=== PATIENT | male | born 1970 | race Caucasian/White ===

== ENCOUNTER 2016-12-30 19:28 | Inpatient (IN) ==
[2016-12-30] MEDS ORDERED: ASPIRIN PO STA (19:38)
[2016-12-30 20:07] LABS: MANUAL DIFF NEEDED? NO
[2016-12-30 20:11] LABS: BASO% 0.4 % (0.0-0.8); EOS# 0.09 X1000 (0.0-0.7); EOS% 1.1 % (0.0-10.0); HEMATOCRIT 41.1 % (42.0-52.0); HEMOGLOBIN 14.4 g/dL (14.0-18.0); IMM GRAN# 0.02 X1000 (0.0-0.04); IMM GRAN% 0.2 % (0.0-0.5); LYMPH# 2.06 X1000 (1.2-3.4); LYMPH% 24.9 % (20.5-51.1); MCH 31.6 PG (27-31); MCV 90.1 FL (81-99); MONO# 0.59 X1000 (0.11-0.59); MONO% 7.1 % (1.7-9.3); MPV 10.9 FL (7.4-10.4); NEUT% 66.3 % (42.2-75.2); PLT 190 X1000 (130-400); RBC 4.56 XMIL (4.7-6.1)
--- NOTE | 2016-12-30 20:16 | Diag Imaging Result Doc PS360 ---
CHEST-2 VIEWS - 12/30/2016 INDICATION: SOB TECHNIQUE: COMPARISON: 05/31/2014 FINDINGS: Stable cardiomegaly. There are some ill-defined central interstitial infiltrates. No pneumothorax or significant pleural effusion. IMPRESSION: Cardiomegaly. Subtle interstitial infiltrates may represent pulmonary edema. Electronically signed by Toi Valenzuela 12/30/2016 8:14 PM
[2016-12-30 20:19] LABS: INR 1.24; PROTIME 13.2 Seconds (9.2-11.7); PTT 24.8 Seconds (22.0-36.0)
[2016-12-30 20:46] LABS: AGAP 11; ALBUMIN 4.3 g/dL (3.5-5.0); ALKALINE PHOSPHATASE 90 U/L (32-122); BUN 15 mg/dL (8-22); CHLORIDE 100 mmol/L (98-107); CK PROFILE 168 U/L (24-204); COSMO 277; GOT 17 U/L (10-34); GPT 20 U/L (10-44); POTASSIUM 4.3 mmol/L (3.5-5.1); SODIUM 138 mmol/L (136-145); TCO2 27 mmol/L (25-35)
[2016-12-30] MEDS ORDERED: RANEXA PO ONE (23:52)
[2016-12-31] MEDS ORDERED: LASIX IV ONE ×2 (00:39→00:42)
[2016-12-31] MEDS ORDERED: ZOFRAN IV PRN (01:08)
[2016-12-31] MEDS ORDERED: TYLENOL PO PRN (01:08)
[2016-12-31] MEDS ORDERED: LOVENOX SUBQ SCH (01:08)
--- NOTE | 2016-12-31 02:31 | HISTORY AND PHYSICAL ---
Patient of Dr. Vern Hayes. REASON FOR ADMISSION: Dyspnea on exertion for the last 10 days. HISTORY OF PRESENT ILLNESS: Mr. Toney Najera is a 44-year-old male with past medical history of hypertension, hyperlipidemia. Primary armored machine operator is Dr. Garcia. He also has a history of coronary artery disease with triple-vessel disease. Cardiac cath was done in 2014 at that time. He comes in today complaining of 1-week history of worsening intermittent dyspnea on exertion to the point that even walking 10 feet in the last couple of days induces severe dyspnea. He denies any antecedent leg swelling, PND, orthopnea. No chest pain with this, however. No palpitations or presyncopal type symptoms. He denies any cough, fever or chills. He denies any extremity redness or pain. REVIEW OF SYSTEMS: Only notable for epigastric soreness which lasts 10 minutes and has been ongoing for the last 1 week with no specific aggravating or relieving factors. No history of GI complaints. He also complains of an occasional dry cough. He denies any abdominal distention. No platypnea. Otherwise, 12 system review is negative. Positive findings noted in the HPI. No fever or chills. ALLERGIES: Codeine. MEDICATIONS: 1. Lipitor 80 mg daily. 2. Ranexa 500 mg b.i.d. 3. Aspirin 162 mg daily. 4. Lisinopril 20 mg q.a.m. SURGICAL HISTORY: Notable for 2 right shoulder surgeries and clot evacuation and bleed from an aneurysm many years ago. SOCIAL HISTORY: Patient lives with his mother. He does not smoke, drink or use or use illicit drugs. FAMILY HISTORY: Only notable for heart disease and diabetes. He said there are cancers in the family but does not know what type. LAB WORK: EKG showed normal sinus rhythm with right bundle branch block and left anterior hemiblock and left atrial enlargement. Other blood work: White count 8000, hemoglobin 14, hematocrit 41, platelets 190 with normal differential. Chemistry: Magnesium 2.0, total bilirubin is 1.3. Troponin times 2 negative. ProBNP 1400. D-dimer is negative. PT and PTT is normal. Chest film shows cardiomegaly with subtle interstitial infiltrates which may represent pulmonary edema. PHYSICAL EXAMINATION: VITAL SIGNS: Blood pressure is 133/79, heart rate 57, respirations is 16, temperature 97.9, 99% on room air. GENERAL: He is a pleasant middle-aged, obese, man who is not in acute respiratory distress. He is alert and oriented to person, place and time with normal mood and affect. HEENT: Head is normocephalic, atraumatic. Eyes: ELAN, EOMI. He is anicteric but mildly pale. ENT and oropharyngeal exam is grossly normal. No central cyanosis noted. NECK: Supple. No JVD or carotid bruit. No thyromegaly. CHEST: Clear to auscultation. Good air entry in both lung dolan. CARDIOVASCULAR: First heart sounds are heard and persistent split 2nd heart sound noted. No murmurs. Rhythm is regular. No gallops. ABDOMEN: Protuberant, soft. No tenderness elicited. No mass or organomegaly. Bowel sounds are normal. RECTAL: Deferred at this time. EXTREMITIES: No edema, clubbing or cyanosis. NEUROLOGICAL: Exam is grossly intact. No focal deficits. SKIN: Intact. No breakdown, lesions or erythema. MUSCULOSKELETAL: Grossly normal. ASSESSMENT: 1. Dyspnea, probably secondary to transient third-degree AV block with early onset CHF. 2. Mild CHF. 3. Coronary artery disease. 4. Hypertension. 5. Hyperlipidemia. PLAN: At this point in time, I will give patient modest doses of Lasix to see how he responds and repeat chest film. If he clinically improves with simultaneous objective improvement in x-ray, then probably this patient's symptoms may be related to early onset CHF which could be related to his underlying ischemic disease. The patient did have some degree of transient third-degree AV block and it was suggested by Dr. Viramontes, the armored machine operator conference center coordinator, that he be transferred to [place] but unfortunately they do not have any beds to admit the patient. A TSH level was done to rule out underlying hypothyroidism. The patient will put on scheduled nebulizer treatments to address mild dyspnea from CHF and also may help with his rate. Echocardiogram has been ordered to assess his EF. His last one was 55% per his cardiac cath. Serial cardiac troponins will be done to monitor for any possibility of acute coronary event. Also Ranexa will be withheld as one of the side effects is bradycardia. Dr. Viramontes will be notified to see patient. Lovenox will be our choice in this patient for DVT prophylaxis. It is possible with these interventions that the patient may not need to be transferred. cc: MD Vern Oliveros MD [facility]ITAL[facility]and[facility]
[2016-12-31] MEDS ORDERED: FLUZONE QUAD 2017-2018 SYRINGE IM ONE (02:47)
[2016-12-31] MEDS: DUONEB (A & A) INH SCH ×2 (03:10→10:01)
--- NOTE | 2016-12-31 05:37 | EKG Report ---
Test Performed on : 12/30/2016 7:36:48 PM Test Reason : sob Blood Pressure : / mmHG Vent. Rate : 059 BPM Atrial Rate : 059 BPM P-R Int : 298 ms QRS Dur : 150 ms QT Int : 498 ms P-R-T Axes : 041 -68 020 degrees QTc Int : 493 ms Sinus bradycardia. with 1st degree AV block. with occasional premature ventricular complexes. Possible Left atrial enlargement Left axis deviation Right bundle branch block Inferior infarct , age undetermined Abnormal ECG When compared with ECG of 07-JUL-2014 09:22, Significant changes have occurred Unconfirmed Result
--- NOTE | 2016-12-31 05:38 | EKG Report ---
Test Performed on : 12/30/2016 10:00:42 PM Test Reason : SOB Blood Pressure : / mmHG Vent. Rate : 062 BPM Atrial Rate : 062 BPM P-R Int : 308 ms QRS Dur : 164 ms QT Int : 514 ms P-R-T Axes : 038 -74 019 degrees QTc Int : 521 ms Sinus rhythm. with 1st degree AV block. Possible Left atrial enlargement Left axis deviation Right bundle branch block Inferior infarct (cited on or before 30-DEC-2016) Abnormal ECG When compared with ECG of 30-DEC-2016 19:36, (Unconfirmed) premature ventricular complexes. are no longer present Unconfirmed Result
[2016-12-31 06:37] LABS: AGAP 13; BUN 16 mg/dL (8-22); CALCIUM 8.9 mg/dL (8.8-10.2); CHLORIDE 98 mmol/L (98-107); COSMO 280; POTASSIUM 3.6 mmol/L (3.5-5.1); SODIUM 140 mmol/L (136-145); TCO2 29 mmol/L (25-35)
[2016-12-31] MEDS ORDERED: ASPIRIN EC PO SCH (09:00)
[2016-12-31] MEDS ORDERED: PRINIVIL PO SCH (09:00)
[2016-12-31] MEDS ORDERED: LIPITOR PO SCH (09:00)
--- NOTE | 2016-12-31 09:51 | Diag Imaging Result Doc PS360 ---
EXAM: CHEST-2 VIEWS HISTORY: ?chf TECHNIQUE: PA and lateral chest COMMENT: There is mild cardiomegaly. The inspiration is suboptimal. The appearance the chest has not changed appreciably since 12/30/2016. IMPRESSION: Borderline cardiomegaly. Electronically signed by Pavel Fernández 12/31/2016 9:48 AM
--- NOTE | 2016-12-31 10:28 | EKG Report ---
Test Performed on : 12/31/2016 09:58:26 AM Test Reason : Confirm rhythm Blood Pressure : / mmHG Vent. Rate : 047 BPM Atrial Rate : 023 BPM P-R Int : 000 ms QRS Dur : 160 ms QT Int : 536 ms P-R-T Axes : 000 -79 024 degrees QTc Int : 474 ms Wide QRS rhythm. Left axis deviation Right bundle branch block Inferior infarct , age undetermined Abnormal ECG When compared with ECG of 30-DEC-2016 22:00, Wide QRS rhythm. has replaced Sinus rhythm. Confirmed by Nataly VARNER, Rudy Pacheco ([id number]) on 01/02/2017 7:49:23 AM
[2016-12-31 10:44] VITALS: BP 115/78
--- NOTE | 2016-12-31 18:32 | ECHO REPORT ---
ORDER DATE: 12/31/2016 INTERPRETING PHYSICIAN: Dr. Garcia REQUESTING PHYSICIAN: CLINICAL INDICATIONS: A 46-year-old male with coronary heart disease, CHF. M-MODE MEASUREMENTS: Right ventricle end diastole: 3.1 cm. Left ventricle end diastole: 7.1 cm. Left ventricle end systole: 6.0 cm. Posterior wall: 1.2 cm. Interventricular septum: 1.1 cm. Left atrium: 4.8 cm. Aortic root: 3.1 cm. SUMMARY OF 2-DIMENSIONAL IMAGING: Definity was used to enhance the visualization of the endocardium. The left ventricular chamber is markedly dilated. Global systolic function is estimated to be somewhere in the range of 40-45%. There is severe impairment of the inferior wall and also moderate impairment of the lateral wall. The septum and apex showed reasonable contractility. The left atrium is moderately dilated. The right ventricle is only borderline enlarged. The pulmonic valve looks normal. Color flow mapping unremarkable. The tricuspid valve looks grossly normal. Color flow mapping unremarkable. The inferior vena cava is not dilated. Pulmonary pressure is probably normal. The mitral valve opens normally. Color flow mapping indicates a mild degree of regurgitation. Pulse wave Doppler of mitral inflow shows a pseudo normal pattern with a tall E wave and a short A wave. Tissue Doppler of septal and lateral mitral annulus averages 4 cm per second. There is impaired left ventricular relaxation with elevation of left atrial pressure. The aortic valve opens normally. Color flow mapping unremarkable. There is no pericardial effusion, masses or thrombus. IMPRESSION: In summary, this study shows: 1. Enlargement of left ventricle with moderately impaired function. Ejection fraction 40-45% with significant wall motion abnormality in the inferior and lateral wall. 2. Impaired left ventricular relaxation with elevation of left atrial pressure consistent with diastolic dysfunction. 3. Pulmonary pressure probably normal. 4. Very mild degree of mitral regurgitation. Clinical correlation recommended. cc: MD Ivan Norwood MD
--- NOTE | 2017-01-01 09:57 | DISCHARGE SUMMARY ---
ADMISSION DATE: 12/31/2016 DISCHARGE DATE: 12/31/2016 The patient was transferred to [facility] on 01/08. PERTINENT PROCEDURES: 1. Chest x-ray showed cardiomegaly, interstitial infiltrates may represent pulmonary edema. 2. EKG showed sinus bradycardia with first-degree AV block with occasional premature ventricular contractions. Possible left atrial enlargement. 3. EKG showed sinus rhythm with first-degree AV block, with possible left atrial enlargement, left axis deviation, right bundle branch block. 4. Echocardiogram showed an ejection fraction of 40-45% with severe impairment of the inferior wall, moderate of lateral wall. Impaired LV relaxation with elevation of left atrial pressure, consistent with diastolic dysfunction. Very mild degree of mitral regurgitation. 5. Followup chest x-ray showed borderline cardiomegaly. 6. Third EKG showed a wide QRS rhythm at 47 beats per minute with a left axis deviation and right bundle branch block. DISCHARGE DIAGNOSES: 1. Third degree arteriovenous block with acute congestive heart failure. The patient was transferred to [facility] by Cardiology for further treatment. 2. Coronary artery disease. 3. Hypertension. 4. Hyperlipidemia. HOSPITAL COURSE: Mr. Najera is a 44-year-old male with a past medical history of hypertension, hyperlipidemia. Primary security incident response specialist was Dr. Garcia. Has a history of coronary artery disease with triple-vessel disease. Cardiac cath was done in 2014. He came to the ED complaining of a 1-week history of worsening intermittent dyspnea on exertion to the point of even walking 10 feet in last couple a day and severe dyspnea. He denied any leg swelling, paroxysmal nocturnal dyspnea, orthopnea, or chest pain; however, no palpitations or presyncopal type symptoms. No cough, fever, or chills. Denied any extremity redness or pain. He was notable for epigastric soreness which lasted 10 minutes and had been ongoing for the last week with no specific aggravating or alleviating factors. No history of GI complaints. Does complain of occasional dry cough. Denied any abdominal distention. His initial EKG showed normal sinus rhythm with right bundle branch block and left anterior hemiblock and left atrial enlargement. Chest x-ray showed cardiomegaly with subtle interstitial infiltrates, which may represent pulmonary edema. A high white count 8000 hemoglobin of 14, hematocrit 41, and platelets of 190,000. Chemistry: His magnesium was 2.0. Troponin's were negative x2. His proBNP was 1400. D-dimer was negative. PT and PTT were normal. Potassium was 4.3. In the ED he was given 325 mg of aspirin, as well as a dose a Ranexa. He was admitted for dyspnea secondary to transient third-degree AV block with early onset of congestive heart failure. He was given a dose of Lasix by the admitting physician, with repeat EKG and cardiology consult, given the patient has some degree of transient third- degree AV block. I did speak with Cardiology Dr. Viramontes, the security incident response specialist accreditation specialist. He wanted the patient transferred to [place], although unfortunately does not have any beds to admit the patient. They did a TSH level as well to rule out any underlying hypothyroidism. We ordered an echo and withheld Ranexa, as one of the side effects of bradycardia. His echocardiogram did show enlargement of the left ventricle with moderately impaired function with ejection fraction of 40- 45% as well as impaired LV relaxation with elevation of left atrial pressure consistent diastolic dysfunction and very mild degree of mitral regurgitation. He was ultimately transferred to [facility] for 3rd degree AV block, for further management and treatment. Time discharging this patient: 35 minutes Dictated by AJ Loaiza for Tato Whitaker MD cc: MD Vern Candelaria MD MTDD
--- NOTE | 2017-01-02 20:14 | PROVIDER DOCUMENTATION ---
This chart was entered by Merissa Moses Scribe, acting as scribe for David Jones MD. HPI-Cardiac General - General Chief Complaint: Shortness of Breath Stated Complaint: SOB Time Seen by Provider: 12/30/16 22:39 Source: patient Allergies/Adverse Reactions: Patient Allergies Allergy/AdvReac Type Severity Reaction Status Date / Time codeine Allergy SWELLING Verified 12/30/16 23:37 Home Medications: Home Medication List Medication Instructions Recorded Confirmed Last Taken Type Aspirin [Aspirin EC] 162 mg PO QAM 12/30/16 12/30/16 12/30/16 09:00 History Atorvastatin Calcium [Lipitor] 80 mg PO QAM 12/30/16 12/31/16 12/30/16 09:00 History Lisinopril [Lisinopril] 1 each PO QAM 12/30/16 12/30/16 12/29/16 09:00 History Ranolazine [Ranexa] 1 each PO BID 12/30/16 12/30/16 12/30/16 12:30 History - History of Present Illness-Cardiac Nature of Presenting Problem: Pt is a 46 y/o M presents to the ED with bradycardia and SOB. Pt states bradycardia has been present for 2 years and the SOB has been present for a week and a half. Pt states diver's tender is Dr. Bennett and he has talked about a pacemaker. Pt states Dr. Bennett has sent a referral to an restaurant recruiter. Pt states has not seen the restaurant recruiter. Pt states has had a stress test and a cardiac cath. Pt denies chest pain Location: reports: central Quality of Pain: reports: none Severity in ED: mild Onset/Duration: other (a week and a half for SOB and 2 year of bradycardia) Timing: still present Context/Activities at Onset: reports: light activity Modifying Factors: improves with: nothing Palpitation Quality: slow heart rate History of arrythmia: reports: none Recent use of:: reports: no stimulants Nitro Today/Relief: reports: no nitro taken today Aspirin Treatment Today: reports: no aspirin today Prior Chest Pain/Cardiac Workup: reports: cardiac cath, stress test Associated Symptoms: reports: shortness of breath Similar Symptoms Previously?: Yes Recently Seen Here or By Another Healthcare Provider: Yes Review of Systems - Adult - REVIEW OF SYSTEMS - ADULT Constitutional: reports: no symptoms reported Eyes: reports: no symptoms reported Ears, Nose, Mouth & Throat: reports: no symptoms reported Cardiovascular: reports: irregular heart rate (abhi). denies: chest pain, heart murmur Respiratory: reports: shortness of breath. denies: cough, wheezing Gastrointestinal: reports: no symptoms reported Genitourinary: reports: no symptoms reported Musculoskeletal: reports: no symptoms reported Integumentary: reports: no symptoms reported Neurological: reports: no symptoms reported Psychiatric: reports: no symptoms reported Endocrine: reports: no symptoms reported Hematologic/Lymphatic: reports: no symptoms reported Allergic/Immunologic: reports: no symptoms reported All Other Systems: Reviewed and Negative Past History - Adult - PAST MEDICAL HISTORY-ADULT Review of Records: reports: Nursing Assessment Review, Medications Reviewed, Social history reviewed & non-contributory. 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) Endocrine/Immune: reports: denies history Other Conditions: reports: denies history - PRIOR SURGERIES/PROCEDURES Surgical/Procedure History: reports: other (aneurysm brain repair) - IMMUNIZATION STATUS Childhood Immunizations: See Nurse Assessment Flu Vaccine: See Nurse Assessment - FAMILY HISTORY Family History: reviewed, not pertinent - SOCIAL HISTORY Smoking: denies Substance Use: alcohol Alcohol Use Frequency: occasionally Number of drinks per typical drinking period:: 2 drinks Living Situation: family Physical Exam-General - PHYSICAL EXAM-ADULT Initial Vital Signs Reviewed: Yes - CONSTITUTIONAL General Appearance: alert, no apparent distress. negative: lethargic, slow to respond - EYES Eyes: PERRL/EOMI, pink conjunctivae. negative: pale conjunctivae, sunken eyes - HEAD, EARS, NOSE, MOUTH & THROAT HENMT: normocephalic/atraumatic, moist mucous membranes, normal ENT inspection. negative: angioedema, hearing deficit - NECK Neck: normal inspection. negative: lymphadenopathy, tender lateral - RESPIRATORY Respiratory: chest non-tender, lungs clear, normal breath sounds. negative: crackles, rhonchi - CARDIOVASCULAR Cardiovascular: normal peripheral pulses, bradycardia. negative: regular rate, rhythm, systolic murmur - GASTROINTESTINAL (ABDOMEN) Abdominal Exam: normal bowel sounds, non tender, soft. negative: guarding, rebound - LYMPHATIC Lymphatic: no adenopathy. negative: enlargement, streaking - MUSCULOSKELETAL Back Exam: normal inspection, no CVA tenderness, no vertebral tenderness. negative: ecchymosis, swelling Extremity: normal range of motion, non-tender. negative: deformity, erythema, swelling - SKIN Integumentary: normal color, normal turgor, warm/dry. negative: diaphoresis, ecchymosis, erythema, laceration(s), rash - NEUROLOGIC Neurologic: grossly normal. negative: aphasia, facial droop - PSYCHIATRIC Psych/Mental Status: normal mood/affect, oriented x 3. negative: paranoid, tearful Progress - PLAN OF CARE/RESULTS Progress/Plan/Lab Results: Orders Category Date Time Status Admit - [facility] Routine AdmDCTranf 12/31/16 01:08 Ordered Activity - Up with Assistance ORDERED Care 12/31/16 01:08 Active Cardiac Monitoring DIRECTED Care 12/30/16 19:38 Completed Nursing- MD Consult Request [id number] Care 12/31/16 01:08 Active Physician/Provider Consults Routine Cons 12/31/16 01:08 Ordered NPO Diet 12/31/16 00:31 Completed CHEST-2 VIEWS [RAD] Stat Exams 12/30/16 19:38 Completed BASIC METABOLIC PANEL [CHEM] Routine Lab 12/31/16 04:00 Completed CBC WITH ELECTRONIC DIFF [HEME] Stat Lab 12/30/16 19:49 Completed CK PROFILE [SP CHEM] Stat Lab 12/30/16 19:49 Completed CK TOTAL [CHEM] Stat Lab 12/30/16 22:17 Completed COMPREHENSIVE METABOLIC PANEL [CHEM] Stat Lab 12/30/16 19:49 Completed D-DIMER [CHEM] Stat Lab 12/30/16 19:49 Completed MAGNESIUM [CHEM] Stat Lab 12/30/16 19:49 Completed PRO B-NATRIURETIC PEPTIDE Stat Lab 12/30/16 19:49 Completed PROTIME WITH INR [COAG] Stat Lab 12/30/16 19:49 Completed PTT [COAG] Stat Lab 12/30/16 19:49 Completed TROPONIN T Stat Lab 12/30/16 19:49 Completed TROPONIN T Stat Lab 12/30/16 22:17 Completed TSH Stat Lab 12/31/16 01:08 Completed ATORVAstatin [Lipitor] Med 12/31/16 09:00 Discontinued 80 mg PO QAM Acetaminophen [Tylenol] Med 12/31/16 01:08 Discontinued 650 mg PO Q6H PRN PRN Albuterol 2.5MG/Ipratrop 0.5MG [Duoneb (A & A)] Med 12/31/16 04:00 Discontinued 3 ml INH RTQ6H Aspirin Med 12/30/16 19:38 Discontinued 325 mg PO STAT STA Aspirin EC Med 12/31/16 09:00 Discontinued 162 mg PO QAM Enoxaparin [Lovenox] Med 12/31/16 01:08 Discontinued 40 mg SUBQ Q24H LISINOpril [Prinivil] Med 12/31/16 09:00 Discontinued 20 mg PO QAM Ondansetron [Zofran] Med 12/31/16 01:08 Discontinued 4 mg IV Q4H PRN PRN Ranolazine E.r. [Ranexa] Med 12/30/16 23:52 Discontinued 500 mg PO NOW ONE Aerosol Treatments Routine Oth 12/31/16 01:08 Completed Aerosol Treatments Stat Oth 12/31/16 01:08 Completed EKG [EKG] Stat Ther 12/30/16 19:29 Draft EKG [EKG] Stat Ther 12/30/16 22:01 Draft Transfer/Admit Order [TRANSFER] Routine Transfer 12/31/16 00:28 Completed Result Diagrams: 12/30/16 19:49 12/31/16 04:00 - EKG 1 Time of EKG reading by physician:: 22:00 EKG Read and Signed by:: David Jones EKG Interpretation (*Must complete 3 of following elements*): Abnormal (RBBB; inferior infarct, age undetermined) Rate: 62 Rhythm: sinus rhythm with 1st degree AV block Comments: possible left atrial enlargement; left axis deviation - XRAY 1 XRAY Study: Chest Impression: Abnormal XRAY Interpretation: Cardiomegaly. Subtle interstitial infiltrates may represent pulmonary edema - CONSULTS/PCP/HOSPITALIST Notification #1 *Consult/PCP/Hospitalist*: Dr. Viramontes Time Discussed: 23:19 Reason/Comments: Dr. Jones consulted with Dr. Viramontes about Pt Consult Disposition: other (Transfer to [place]) #2 Consult: Dr. Doll's CABLE MACHINE OPERATOR Time Discussed: 23:40 Reason/Comments: Dr. Jones consulted with Dr. Doll' CABLE MACHINE OPERATOR about Pt Consult Disposition: other (Dr. Doll's CABLE MACHINE OPERATOR states there are no bed at [place]) #3 Consult: Dr. Sinclair Time Discussed: 00:09 Reason/Comments: Dr. Jones consulted with Dr. Sinclair about Pt Consult Disposition: Admit Departure - Departure Date of Disposition Decision: 12/31/16 Time of Disposition Decision: 00:09 DIAGNOSIS: Third degree heart block by electrocardiogram Disposition: ADMITTED INPATIENT Certified Medical Emergency: Emergent Condition: Stable - Critical Care Note This patient required my direct & personal management of CC.: No Attestation - Physician/ ELOY Attestation Patient care was provided by Advanced Practice Provider:: No The physician spent face to face time with patient:: Yes Advanced Practice Provider documentation review:: Supervising physician onsite and consulted in the evaluation and care of this patient. The physician did have a face to face encounter with the patient. This chart was documented by the indicated scribe, (Merissa Moses Scribe) and accurately reflects the services I performed and decisions made by , David Jones MD, as attested by the provider's signature.
--- NOTE | 2017-01-02 20:15 | ED EKG INTERP ---
This chart was entered by Merissa Moses Scribe, acting as scribe for David Jones MD. EKG Interpretation - EKG Time of EKG reading by physician:: 19:36 EKG Read and Signed by:: David Jones EKG Interpretation (*Must complete 3 of following elements*): Abnormal (rhythm - sinus bradycardia w 1st degree AV block w occasional premature ventricular complexes; inferior infarct, age undetermined) Rate: 59 Comments: possible left atrial enlargement; left axis deviation; RBBB Attestation - Physician/ ELOY Attestation Patient care was provided by Advanced Practice Provider:: No The physician spent face to face time with patient:: Yes Advanced Practice Provider documentation review:: Supervising physician onsite and consulted in the evaluation and care of this patient. The physician did have a face to face encounter with the patient. This chart was documented by the indicated scribe, (Merissa Moses Scribe) and accurately reflects the services I performed and decisions made by me, David Jones MD, as attested by the provider's signature.
== END 2016-12-31 14:52 | disposition short-term general hospital (02) ==
LOC: ED 19:28 → SUATTDRO 12-31 00:36 → 3S 12-31 00:36
PROVIDERS: ATTEND Internal Medicine

== ENCOUNTER 2018-12-17 15:27 | Inpatient (IN) ==
[2018-12-17 16:01] LABS: BASO# 0.02 X1000 (0.0-0.2); BASO% 0.3 % (0.0-0.8); EOS# 0.09 X1000 (0.0-0.7); EOS% 1.3 % (0.0-10.0); HEMATOCRIT 37.4 % (42.0-52.0); HEMOGLOBIN 13.2 g/dL (14.0-18.0); IMM GRAN# 0.03 X1000 (0.0-0.04); IMM GRAN% 0.4 % (0.0-0.5); LYMPH# 1.85 X1000 (1.2-3.4); LYMPH% 26.5 % (20.5-51.1); MCHC 35.3 g/dL (33-37); MCV 90.6 FL (81-99); MONO# 0.41 X1000 (0.11-0.59); MONO% 5.9 % (1.7-9.3); MPV 9.6 FL (7.4-10.4); NEUT# 4.58 X1000 (1.4-6.5); NEUT% 65.6 % (42.2-75.2); PLT 174 X1000 (130-400); RBC 4.13 XMIL (4.7-6.1); RDW 12.7 % (11.5-14.5); WBC 6.98 X1000 (4.8-10.8)
--- NOTE | 2018-12-17 16:51 | Diag Imaging Result Doc PS360 ---
CT HEAD W/O CONTRAST - 12/17/2018 INDICATION: facial numbness COMPARISON: None FINDINGS: There has been prior suboccipital craniotomy. There is a large area of old encephalomalacia involving the right cerebellar hemisphere, with a small involvement of the left cerebellar hemisphere. This indicates prior injury or resection. No intracranial mass or hemorrhage. The skull is intact. The sinuses are clear. IMPRESSION: No acute process. This exam was performed using automated exposure control, adjustment of mA or kV according to patient size, and/or use of iterative reconstruction technique Electronically signed by Toi Valenzuela 12/17/2018 4:49 PM
--- NOTE | 2018-12-17 18:22 | ED EKG INTERP ---
This chart was entered by Maude Vazquez Scribe, acting as scribe for Seng Heredia MD. EKG Interpretation - EKG Time of EKG reading by physician:: 16:25 EKG Read and Signed by:: Seng Heredia EKG Interpretation (*Must complete 3 of following elements*): Abnormal (paced rhythm, lvcd, rvh) Rate: 70 Rhythm: atrial paced rhythm QRS: NSIVCD, other (rvh) Attestation - Physician/ ELOY Attestation The physician spent face to face time with patient:: No Advanced Practice Provider documentation review:: Supervising physician onsite and consulted in the evaluation and care of this patient. The physician did not have a face to face encounter with the patient. This chart was documented by the indicated scribe, (Maude Vazquez, Ryan) and accurately reflects the services I performed and decisions made by Giovanna brooks Kent A., MD, as attested by the provider's signature.
--- NOTE | 2018-12-17 18:36 | EKG Report ---
Test Performed on : 12/17/2018 3:49:58 PM Test Reason : dizzy Blood Pressure : / mmHG Vent. Rate : 070 BPM Atrial Rate : 069 BPM P-R Int : 000 ms QRS Dur : 164 ms QT Int : 480 ms P-R-T Axes : 000 165 -17 degrees QTc Int : 518 ms Suspect arm lead reversal, interpretation assumes no reversal Atrial-paced rhythm Nonspecific intraventricular block Possible Right ventricular hypertrophy Lateral infarct (cited on or before 31-DEC-2016) Abnormal ECG When compared with ECG of 20-JUL-2017 13:03, Electronic atrial pacemaker has replaced Sinus rhythm. Unconfirmed Result
[2018-12-17 19:08] LABS: INR 1.17
[2018-12-17 19:09] LABS: PTT 25.8 Seconds (22.3-41.8)
[2018-12-17 19:21] LABS: AGAP 13; ALB/GLOB RATIO 1.6; ALBUMIN 4.5 g/dL (3.5-5.0); ALKALINE PHOSPHATASE 114 U/L (32-122); BUN 11 mg/dL (8-22); CALCIUM 9.2 mg/dL (8.8-10.2); CHLORIDE 103 mmol/L (98-107); CK PROFILE 136 U/L (24-204); COSMO 279; CREATININE 0.9 mg/dL (0.7-1.2); ESTIMATED GFR > 60; GLUCOSE 100 mg/dL (70-104); GOT 14 U/L (10-34); GPT 16 U/L (10-44); SODIUM 140 mmol/L (136-145); TCO2 24 mmol/L (25-35); TOTAL BILIRUBIN 0.49 mg/dL (0.20-1.00); TOTAL PROTEIN 7.3 g/dL (6.3-8.3)
--- NOTE | 2018-12-17 20:49 | PROVIDER DOCUMENTATION ---
This chart was entered by Maude Vazquez Scribe, acting as scribe for Jerrell Jenkins MD. HPI-Neurological Disorder - General Chief Complaint: Numbness Stated Complaint: SWOLLEN LIPS/ NUMBNESS ON THE LEFTSIDE OF FACE Time Seen by Provider: 12/17/18 15:40 Source: patient Allergies/Adverse Reactions: Patient Allergies Allergy/AdvReac Type Severity Reaction Status Date / Time codeine Allergy SWELLING Verified 12/30/16 23:37 Home Medications: Home Medication List Medication Instructions Recorded Confirmed Last Taken Type Aspirin [Aspirin EC] 162 mg PO QAM 12/30/16 12/17/18 12/30/16 09:00 History Atorvastatin Calcium [Lipitor] 80 mg PO QAM 12/30/16 12/17/18 12/30/16 09:00 History Lisinopril 1 each PO QAM 12/30/16 12/17/18 12/29/16 09:00 History Ranolazine [Ranexa] 1 each PO BID 12/30/16 12/17/18 12/30/16 12:30 History Tramadol [Ultram] 50 mg PO Q8HR PRN #14 tab 07/20/17 12/17/18 Unknown Rx - History of Present Illness-Neuro Nature of Presenting Problem: pt is a 48 yr old male presenting with 1 day complaint of headache and left facial numbness, pt reports onset last night. improved at this time. pt does also report recent 3 month hx of intermittent swelling/numbness to lips, this resolves on its own, last episode was last night. pt is on Lisinopril for BP. pt denies any confusion, dizziness or chest pain. no nausea, vomiting or shortness of breath. 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 denies: fever/chills, numbness in legs/feet, slurred speech, vision changes Similar Symptoms Previously?: No Recently seen or treated by another doctor?: No Review of Systems - Adult - REVIEW OF SYSTEMS - ADULT Constitutional: denies: chills, fever Eyes: denies: blurred vision, double vision Ears, Nose, Mouth & Throat: reports: no symptoms reported Cardiovascular: denies: chest pain, palpitations, syncope Respiratory: denies: cough, shortness of breath Gastrointestinal: denies: abdominal pain, nausea, vomiting Genitourinary: reports: no symptoms reported Musculoskeletal: denies: back pain, joint pain, neck pain Integumentary: reports: no symptoms reported Neurological: reports: headache/migraines, numbness (left face). denies: dizziness/vertigo, seizure, slurred speech, syncope Psychiatric: reports: no symptoms reported Endocrine: reports: no symptoms reported Hematologic/Lymphatic: reports: no symptoms reported Allergic/Immunologic: reports: no symptoms reported All Other Systems: Reviewed and Negative Past History - Adult - PAST MEDICAL HISTORY-ADULT Review of Records: reports: Old Records Reviewed, Nursing Assessment Review, Medications Reviewed, Social history reviewed & non-contributory. 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) Psychiatric: reports: denies history Endocrine/Immune: reports: denies history Other Conditions: reports: denies history - PRIOR SURGERIES/PROCEDURES Surgical/Procedure History: reports: pacemaker, other (aneurysm brain repair) - IMMUNIZATION STATUS Childhood Immunizations: See Nurse Assessment Flu Vaccine: See Nurse Assessment - FAMILY HISTORY Family History: reviewed, not pertinent - SOCIAL HISTORY Smoking: non-smoker Substance Use: alcohol Alcohol Use Frequency: occasionally Living Situation: family Physical Exam- Neurological - Physical Exam-Neuro Initial Vital Signs Reviewed: Yes General Appearance: appears well, alert, no apparent distress, obese Eye Exam: bilateral eye: normal inspection, PERRL HENMT: normocephalic/atraumatic, moist mucous membranes, normal ENT inspection Head Injury: no evidence of injury Neck: non-tender, full range of motion, supple, normal inspection Respiratory: chest non-tender, lungs clear, normal breath sounds Cardiovascular: normal peripheral pulses, regular rate, rhythm, no edema Abdominal Exam: normal bowel sounds, non tender, soft Lymphatic: no adenopathy Peripheral Pulses: radial (R): 2+, radial (L): 2+ Extremity: normal range of motion, non-tender, normal gait, normal inspection 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 negative: sensory deficit Neurologic: ict systems test engineer II-XII nml as tested, no motor/sensory deficits. negative: motor weakness, sensory deficit Integumentary: normal color, normal turgor, warm/dry Psych/Mental Status: normal mood/affect - Glascow Coma Scale Best Eye Response: (4) open spontaneously Best Verbal Response: (5) oriented Best Motor Response: (6) obeys commands Total Glascow Score: 15 Progress - PLAN OF CARE/RESULTS Progress/Plan/Lab Results: Vital Signs - 8 hr 12/17/18 15:42 12/17/18 18:17 Temperature 98.3 F 98.6 F Pulse Rate 75 70 Respiratory Rate 20 20 Blood Pressure 146/79 118/81 O2 Sat by Pulse Oximetry 97 97 Laboratory Results - last 24 hr 12/17/18 12/17/18 12/17/18 15:40 18:32 18:32 WBC 6.98 RBC 4.13 L Hgb 13.2 L Hct 37.4 L MCV 90.6 MCH 32.0 H MCHC 35.3 RDW Std Deviation 12.7 Plt Count 174 MPV 9.6 Immature Gran % (Auto) 0.4 Neut % (Auto) 65.6 Lymph % (Auto) 26.5 Curry % (Auto) 5.9 Eos % (Auto) 1.3 Baso % (Auto) 0.3 Immature Gran # (Auto) 0.03 Neut # (Auto) 4.58 Lymph # (Auto) 1.85 Curry # (Auto) 0.41 Eos # (Auto) 0.09 Baso # (Auto) 0.02 PT 15.0 INR 1.17 PTT (Actin FS) 25.8 Sodium 140 Potassium 4.0 Chloride 103 Carbon Dioxide 24 L Anion Gap 13 BUN 11 Creatinine 0.9 Estimated GFR/1.73 m2 > 60 BUN/Creatinine Ratio 12 Glucose 100 Calculated Osmolality 279 Calcium 9.2 Total Bilirubin 0.49 AST 14 ALT 16 Alkaline Phosphatase 114 Creatine Kinase 136 Troponin T Total Protein 7.3 Albumin 4.5 Globulin 2.8 Albumin/Globulin Ratio 1.6 12/17/18 18:32 WBC RBC Hgb Hct MCV MCH MCHC RDW Std Deviation Plt Count MPV Immature Gran % (Auto) Neut % (Auto) Lymph % (Auto) Curry % (Auto) Eos % (Auto) Baso % (Auto) Immature Gran # (Auto) Neut # (Auto) Lymph # (Auto) Curry # (Auto) Eos # (Auto) Baso # (Auto) PT INR PTT (Actin FS) Sodium Potassium Chloride Carbon Dioxide Anion Gap BUN Creatinine Estimated GFR/1.73 m2 BUN/Creatinine Ratio Glucose Calculated Osmolality Calcium Total Bilirubin AST ALT Alkaline Phosphatase Creatine Kinase Troponin T < 0.010 Total Protein Albumin Globulin Albumin/Globulin Ratio Orders Category Date Time Status CT HEAD W/O CONTRAST [CT] Stat Exams 12/17/18 15:48 Completed CBC WITH DIFF [HEME] Stat Lab 12/17/18 15:40 Completed CK PROFILE [SP CHEM] Stat Lab 12/17/18 18:32 Completed COMPREHENSIVE METABOLIC PANEL [CHEM] Stat Lab 12/17/18 18:32 Completed PROTIME WITH INR [COAG] Stat Lab 12/17/18 18:32 Completed PTT [COAG] Stat Lab 12/17/18 18:32 Completed TROPONIN T Stat Lab 12/17/18 18:32 Completed EKG [EKG] Stat Ther 12/17/18 15:48 Draft Pt states that his symptoms started last night so TPA ruled out. Result Diagrams: 12/17/18 15:40 12/17/18 18:32 - CT/MRI 1 CT Study: Head Impression: Normal (Signed CT HEAD W/O CONTRAST - 12/17/2018 INDICATION: facial numbness COMPARISON: None FINDINGS: There has been prior suboccipital craniotomy. There is a large area of old encephalomalacia involving the right cerebellar hemisphere, with a small involvement of the left cerebel lar hemisphere. This indicates prior injury or resection. No intracranial mass or hemorrhage. The skull is intact. The sinuses are clear. IMPRESSION: No acute process. This exam was performed using automated exposure control, adjustment of mA or kV according to patient size, and/or use of iterative reconstruction technique Electronically signed by Toi Valenzuela 12/17/2018 4:49 PM 12/17/18 3518 Interpreting Physician: Toi Valenzuela MD Dictated Date/Time: 12/17/18 0178 cc: Simon Pascal; Vern Hayes) Comparison with other Films: no prior study - CONSULTS/PCP/HOSPITALIST Notification #1 *Consult/PCP/Hospitalist*: Dr Smith Time Discussed: 20:44 Consult Disposition: Will see in ED, Admit Departure - Departure Date of Disposition Decision: 12/17/18 Time of Disposition Decision: 20:44 DIAGNOSIS: CVA (cerebral vascular accident), Angioedema Disposition: ADMITTED INPATIENT 09 Certified Medical Emergency: Emergent Condition: Fair Referrals and Follow-Ups: Vern Hayes [Primary Care Provider] - - Critical Care Note This patient required my direct & personal management of CC.: No Attestation - Physician/ ELOY Attestation Patient care was provided by Advanced Practice Provider:: No The physician spent face to face time with patient:: Yes Advanced Practice Provider documentation review:: Supervising physician onsite and consulted in the evaluation and care of this patient. The physician did have a face to face encounter with the patient. This chart was documented by the indicated scribe, (Maude Vazquez Scribe) and ac curately reflects the services I performed and decisions made by me, Jerrell Jenkins MD, as attested by the provider's signature.
[2018-12-17] MEDS ORDERED: TYLENOL PO PRN (22:45)
[2018-12-17] MEDS ORDERED: ZOFRAN IV PRN (22:45)
[2018-12-17] MEDS ORDERED: ULTRAM PO PRN (22:45)
[2018-12-17] MEDS: RANEXA PO SCH (23:18)
--- NOTE | 2018-12-18 06:34 | HISTORY AND PHYSICAL ---
PRIMARY CARE PROVIDER: Dr. Vern Hayes. CHIEF COMPLAINT: Left-sided numbness with lip swelling ongoing for the past 3 months. Left-sided face numbness yesterday. HISTORY OF PRESENT ILLNESS: Mr. Najera is a 48-year-old male who carries a past medical history of CVA at the age of 15, hypertension, hyperlipidemia, follows Dr. Whiteside for Neurology. His primary compliance advisor is Dr. Garcia for his coronary artery disease with triple-vessel disease. He is status post pacemaker placement. Reported to the ED with 3 months of swelling and numbness with hardening in his lips, left-sided facial numbness yesterday. He is on lisinopril. We will stop that medication for now. Initial head CT does not show anything acute. Unable to do an MRI secondary to having a permanent pacemaker. We will place him in and do a full neurological workup and consult Dr. Whiteside in the morning. PAST MEDICAL HISTORY: 1. Coronary artery disease. 2. Hypertension. 3. Hyperlipidemia. 4. Previous CVA at the age of 15. PAST SURGICAL HISTORY: 1. Permanent pacemaker placement. 2. Two right shoulder surgeries. 3. Clot evacuation and bleed from an aneurysm many years ago. SOCIAL HISTORY: He is . at bedside. Denies any alcohol, tobacco, or illicit drug use. FAMILY HISTORY: Notable for heart disease and diabetes. REVIEW OF SYSTEMS: Twelve-point review of systems complete and negative, except for those mentioned in HPI. He denies headache, fever, chills, cough, nausea, vomiting, diarrhea, dizziness, or syncope. HOME MEDICATIONS: 1. Aspirin 162 mg p.o. q.a.m. 2. Lipitor 80 mg p.o. q.a.m. 3. Lisinopril 1 p.o. q.a.m., which we will stop. 4. Ranexa 500 mg p.o. b.i.d. 5. Ultram 50 mg p.o. q.8 hours. PHYSICAL EXAMINATION: VITAL SIGNS: Temperature is 98.6 degrees, heart rate 70, respirations 20, blood pressure 118/81, O2 saturation is 97% on room air. GENERAL: Mr. Najera is a 48-year-old male who is somewhat agitated, lying on the ED stretcher, complaining about wait time. HEENT: Atraumatic, normocephalic. PERRL. NECK: Supple. Trachea midline. CARDIOVASCULAR: S1, S2 appreciated. No murmurs, gallops, rubs noted. RESPIRATORY: Lung sounds clear bilaterally. GASTROINTESTINAL: Soft, nontender, nondistended. Positive bowel sounds 4 quadrants. EXTREMITIES: Lower extremities negative for edema. SKIN: Warm, dry, and intact. NEUROLOGIC: No focal deficits noted. The patient has bilateral upper and lower extremity strength 5/5. Symmetrical smile. Tongue midline. No focal deficits noted. He does have a noticeable tremor that he states he has had for a while. DIAGNOSTIC DATA: Head CT, no acute process. EKG: Atrial paced rhythm at 70 beats per minute. LABORATORY DATA: White count 6, hemoglobin and hematocrit 13 and 37, platelet count 174,000. Sodium 140, potassium 4.0, BUN 11, creatinine 0.9. Blood glucose 100. Troponin less than 0.010. ASSESSMENT AND PLAN: 1. Cerebrovascular accident, transient ischemic attack rule out. The patient is not a candidate for MRI secondary to permanent pacemaker. We will consult Dr. Whiteside in the morning. Continue with neurological checks, his aspirin regimen, statin. We will check a lipid profile in the morning. Continue with physical therapy, occupational therapy. 2. Probable anaphylaxis secondary to lisinopril. Patient has been noting swelling, numbness, and hardening to the lips for the past 3 months, and some new left-sided facial numbness as of yesterday. We will stop his home lisinopril. Watch his airway closely. He is not complaining of any complaints at this time, it has all since resolved, but has been intermittent over the last 3 months. 3. Third-degree atrioventricular block, status post permanent pacemaker placement. Currently atrial paced. 4. Coronary artery disease. Aware. 5. Hypertension. We are stopping his lisinopril. We will monitor his blood pressures overnight. We will allow for some permissive hypertension given cerebrovascular accident rule out. 6. Hyperlipidemia. Continue his home statin. 7. Further recommendation to follow physician evaluation, laboratory and diagnostic data. Dictated by AJ Loaiza for Koko Smith MD I have performed a face to face diagnostic evaluation. Labs/ Xrays- reviewed. Exam- Chest- clear, CV- regular, Neuro- speech intact, strength 5/5 all ext. A/P- TIA r/o CVA- Admit, stroke work up, neurology consult. Dr. Smith cc: MD Alyssa Richards III, MD Alan Walker, MD MTDD
[2018-12-18 07:30] LABS: BASO# 0.02 X1000 (0.0-0.2); BASO% 0.3 % (0.0-0.8); EOS# 0.14 X1000 (0.0-0.7); EOS% 1.9 % (0.0-10.0); HEMATOCRIT 39.2 % (42.0-52.0); HEMOGLOBIN 13.7 g/dL (14.0-18.0); IMM GRAN# 0.03 X1000 (0.0-0.04); IMM GRAN% 0.4 % (0.0-0.5); LYMPH# 2.01 X1000 (1.2-3.4); LYMPH% 27.3 % (20.5-51.1); MCH 31.7 PG (27-31); MCHC 34.9 g/dL (33-37); MCV 90.7 FL (81-99); MONO# 0.52 X1000 (0.11-0.59); MONO% 7.1 % (1.7-9.3); NEUT# 4.64 X1000 (1.4-6.5); PLT 178 X1000 (130-400); RBC 4.32 XMIL (4.7-6.1); RDW 12.9 % (11.5-14.5); WBC 7.36 X1000 (4.8-10.8)
[2018-12-18 08:02] LABS: AGAP 11; ALB/GLOB RATIO 1.3; ALBUMIN 3.8 g/dL (3.5-5.0); ALKALINE PHOSPHATASE 99 U/L (32-122); BUN 11 mg/dL (8-22); CALCIUM 9.1 mg/dL (8.8-10.2); CHLORIDE 107 mmol/L (98-107); COSMO 280; ESTIMATED GFR > 60; GLUCOSE 124 mg/dL (70-104); GOT 16 U/L (10-34); GPT 14 U/L (10-44); POTASSIUM 3.8 mmol/L (3.5-5.1); SODIUM 140 mmol/L (136-145); TCO2 22 mmol/L (25-35); TOTAL BILIRUBIN 0.31 mg/dL (0.20-1.00); TOTAL PROTEIN 6.7 g/dL (6.3-8.3)
[2018-12-18] MEDS ORDERED: ASPIRIN EC PO SCH (09:00)
[2018-12-18] MEDS ORDERED: LIPITOR PO SCH (09:00)
[2018-12-18] MEDS: RANEXA PO SCH (09:13)
--- NOTE | 2018-12-18 14:56 | CONSULTATION ---
DATE OF CONSULTATION: 12/18/2018 Mr. Najera reports having some global headache without focal features yesterday. He then noticed some numbness over the upper and lower lips bilaterally. He then noticed numbness involving the left side of his face. He looked in the mirror and did not notice facial asymmetry. There was no slurred speech or trouble swallowing. There was no vision disturbance. He did not have numbness in the left limbs. There was no new right-sided deficit. His chronic right hemiparesis, ataxia, and tremor were unchanged. The left facial numbness resolved in approximately 24 hours. This morning, he feels back to baseline. He has not had an episode like this before. He is not aware of recent facial trauma. There was no apparent facial swelling or redness. There was no bug bite or other exposure. He had not started any new medications. He continues topiramate with Trokendi XR for management of essential tremor. He reports significant definite but incomplete benefit for the tremor with topiramate. He has not had any problems tolerating topiramate. We have followed him in the office for that problem. He has a baseline right hemiparesis and ataxia from very remote brain event. On exam, he is awake, alert, attentive, cheerful, oriented, and appropriate. Speech is not significantly dysarthric. I observed him chewing and swallowing without difficulty. He has full visual dolan tested by confrontational finger counting. Extraocular movements are full. Facial motility is good. He reports good pinprick appreciation on careful testing across the face including the upper and lower lips bilaterally. At times, he reports less pinprick appreciation over the right cheek and chin than the left, and he believes this is chronic and related to his prior brain event. Gag is intact. Tongue is midline. He can hear. Shoulder shrug is equal. Right hemiparesis is at baseline. He has tremor, mostly with action in the right arm, most noted in postural suspension, as before. He has right hemiataxia. I did not test his gait. IMPRESSION: Transient left facial numbness. I do not have a definite explanation. Negative CT is reassuring. Unfortunately, MRI is not an option because of his pacemaker. With his recovery to baseline and stable course, I do not think we need to do anything urgently from a neurology standpoint. He has had carotid ultrasound with preliminary report that there were no findings of significant stenosis. I will check on that report when it is available. I would continue topiramate. We will plan to follow him in our office as before. I will be glad to see him again as an inpatient if he has further events. Thanks for asking neurology to see Mr. Najera. cc: MD ALISA Stokes III
[2018-12-18 16:02] VITALS: BP 126/66
--- NOTE | 2018-12-18 20:35 | Carotid Study ---
DATE: 12/18/2018 PROCEDURE: Bilateral duplex and color flow imaging of the carotid arteries, performed using GE Vivid E9 ultrasound system with a 9 L-D transducer. REFERRING PROVIDER: AJ Saldana PIANO TUNER: Maria Fernanda Fraire RVT INDICATIONS: CVA. FINDINGS: The velocities in cm/sec were reviewed for both carotid systems. The right ICA/CCA ratio is 1.08, corresponding to a percent stenosis of 0% to 39%. The left ICA/CCA ratio is 0.79, corresponding to a percent stenosis of 0% to 39%. INTERPRETATION: Normal bilateral carotid arterial study. cc: Kesha Kerr MD
--- NOTE | 2018-12-19 00:45 | ECHO REPORT ---
ORDER DATE: 12/18/2018 MEASUREMENTS: 1. Left ventricular internal diameter in diastole 7.6. 2. Septal thickness 0.8. 3. Posterior wall thickness 0.8. 4. Aortic root 3.4. 5. Left atrium 4.2. SUMMARY: 1. Technically difficult study due to limited acoustic window quality. Intravenous echo contrast agent, Optison, was utilized to enhance endocardial definition. 2. Aortic valve is trileaflet and opens normally on 2-dimensional images. Peak gradient across aortic valve is less than 10 mmHg. Mitral and tricuspid valves are without evidence of structural abnormality, while pulmonic valve is not well demonstrated. Doppler demonstrates moderate mitral regurgitation and trace tricuspid regurgitation. Aortic root is normal in size. 3. Moderate to severe left ventricular enlargement with normal wall thickness demonstrated. Estimated left ejection fraction is approximately 30%. There is thinning and akinesis of the basal septum. There is severe hypokinesis of the entire inferior wall with akinesis of the mid inferior wall. There is akinesis of the basal and mid inferolateral wall. Left atrium is mildly enlarged. Right atrium, right ventricle are normal size with grossly preserved right ventricular systolic function. 4. No pericardial effusion. 5. Appearance of inferior vena cava suggests normal central venous pressure. cc: Madan Viramontes MD
--- NOTE | 2018-12-19 05:57 | DISCHARGE SUMMARY ---
ADMISSION DATE: 12/17/2018 DISCHARGE DATE: 12/18/2018 DISCHARGE DIAGNOSES: 1. Possible transient ischemic attack versus just paresthesias associated with angioedema. 2. Angioedema, presumably due to NICHOLAS inhibitors. 3. History of cerebrovascular accident. 4. Dyslipidemia. HISTORY: Briefly, this is a 48-year-old male who came in for evaluation. He had anaphylaxis with swelling and numbness, and hardening of the lips for the last 3 months with some left-sided facial numbness, which I think all that was part of the angioedema. He is stabilized. He did not get any specific treatment for that as far as steroids. He is on topiramate and [*]for an essential tremor which he relates to a stroke. He had a stroke when he was 15. Apparently, unclear etiology. MRI is not possible because of a pacemaker, but he had complete resolution of symptoms. There is no focal weakness. No facial asymmetry. No dysconjugate gaze. No pronator drift. Rest of the workup was negative, and he was felt stable for discharge the following day. Dr. Whiteside saw him, and did not have any strong recommendations. Carotid ultrasound was reportedly negative. DISCHARGE MEDICATIONS: 1. Aspirin 162 daily. 2. Lipitor 80 daily. 3. Ranexa 500 b.i.d. 4. Tramadol p.r.n. ALLERGIES: He will have to be listed as allergic to NICHOLAS inhibitors for the rest of his life. cc: MD Vern Bernard MD Dr. Norwood
== END 2018-12-18 16:51 | disposition home or self-care (01) | DRG 916 ==
LOC: ED 15:27 → 3N 22:19 → SUATTDRO 22:19
PROVIDERS: ATTEND Internal Medicine